=== PATIENT | female | born 1980 | race Caucasian/White ===

== ENCOUNTER 2021-01-29 15:13 | Inpatient (IN) ==
[2021-01-29 16:16] LABS: Basophils # 0.1 10*3/uL (0.0-0.2); Basophils % 1.3 % (0.0-0.8); Eosinophils # 0.2 10*3/uL (0.0-0.87); Eosinophils % 2.7 % (0.00-10.9); Hematocrit 30.9 VOL% (35.7-47.0); Hemoglobin 9.8 GM/DL (12.0-16.0); Immature Granulocytes % 0.6 %; Immature Granulocytes Absolute 0.05 #; Lymphocytes # 1.8 10*3/uL (1.4-4.0); Mean Corpuscular HGB Conc 31.7 GM/DL (32-36); Mean Corpuscular Volume 80.3 FL (87-102); Mean Platelet Volume 10.4 FL (9.6-12.0); Monocytes % 15.2 % (1.7-12.7); Neutrophils % 59.2 % (38.7-73.9); Platelet Count 422 T/CUMM (130-400); Red Blood Count 3.85 MC/CUMM (3.8-5.5); Red Cell Distribution Width 13.9 % (9.3-17.3); White Blood Count 8.8 T/CUMM (4-12)
[2021-01-29 16:30] LABS: ABG Base Excess -9.4 MMOL/L (-2.5-2.5); ABG HCO3 16.9 MMOL/L (20-26); ABG Oxygen Saturation 96.9 % (95-100); ABG PCO2 32.4 MM HG (35-48); ABG PH 7.304 (7.35-7.45); ABG PO2 93.1 MM HG (80-95); ABG TCO2 14.8 MMOL/L (23-27)
[2021-01-29 16:34] LABS: Alanine Aminotransferase 10 U/L (13-56); Albumin 2.8 G/DL (3.4-5.0); Alkaline Phosphatase 151 U/L (45-117); Aspartate Amino Transferase 11 U/L (0-37); Bilirubin,Total < 0.39 MG/DL (0.20-1.00); Blood Urea Nitrogen 71 MG/DL (7-18); Calcium 8.1 MG/DL (8.5-10.1); Carbon Dioxide 18 MMOL/L (21-32); Estimated Glom Filtration Rate 9 ML/MIN; Glucose 295 MG/DL (74-106); Osmolality,Calculated 299.2 MOS/KG (273-304); Potassium 4.4 MMOL/L (3.5-5.1); Sodium 134 MMOL/L (136-145); Total Protein 7.1 G/DL (6.4-8.2)
[2021-01-29] MEDS ORDERED: ONDANSETRON 4 MG/2 ML VIAL IV PRN (16:40)
[2021-01-29] MEDS ORDERED: GLUCAGON 1 MG VIAL IM PRN (16:40)
[2021-01-29] MEDS ORDERED: ZALEPLON 5 MG CAPSULE PO PRN (16:40)
[2021-01-29] MEDS ORDERED: DEXTROSE 50% 25 GM/50 ML VIAL IV PRN (16:40)
[2021-01-29] MEDS ORDERED: cloNIDine 0.1 MG TABLET PO PRN (16:45)
[2021-01-29] MEDS ORDERED: ALPRAZolam 0.5 MG TABLET PO PRN (19:11)
[2021-01-29] MEDS ORDERED: diphenhydrAMINE CAP 25 MG CAPSULE PO PRN (19:15)
[2021-01-29] MEDS ORDERED: NON-FORMULARY MEDICATION (Diphenhydramine Hcl [Benadryl Allergy] 25 mg Tablet) PO SCH (21:00)
[2021-01-29] MEDS: traZODone 50 MG TABLET PO SCH (22:28)
[2021-01-29] MEDS: ROSUVASTATIN 20 MG TABLET PO SCH (22:28)
[2021-01-29] MEDS: SODIUM CHLORIDE 0.9% 1,000 ML IV SCH (22:29)
[2021-01-29] MEDS: GABAPENTIN 400 MG CAPSULE PO SCH (22:29)
[2021-01-29] MEDS: INSULIN REGULAR 100 UNIT/ML SUBCUT SCH (23:51)
[2021-01-30] MEDS: SODIUM CHLORIDE 0.9% 1,000 ML IV SCH ×2 (04:10→15:07)
[2021-01-30 05:05] LABS: Basophils # 0.1 10*3/uL (0.0-0.2); Basophils % 1.6 % (0.0-0.8); Eosinophils # 0.2 10*3/uL (0.0-0.87); Hematocrit 29.5 VOL% (35.7-47.0); Hemoglobin 9.2 GM/DL (12.0-16.0); Immature Granulocytes % 0.7 %; Immature Granulocytes Absolute 0.05 #; Lymphocytes # 1.9 10*3/uL (1.4-4.0); Lymphocytes % 24.1 % (21.3-54.2); Mean Corpuscular HGB Conc 31.2 GM/DL (32-36); Mean Corpuscular Volume 81.7 FL (87-102); Mean Platelet Volume 10.4 FL (9.6-12.0); Monocytes % 15.3 % (1.7-12.7); Neutrophils % 55.3 % (38.7-73.9); Platelet Count 424 T/CUMM (130-400); Red Blood Count 3.61 MC/CUMM (3.8-5.5); White Blood Count 7.7 T/CUMM (4-12)
[2021-01-30 05:31] LABS: Alanine Aminotransferase 12 U/L (13-56); Albumin 2.4 G/DL (3.4-5.0); Alkaline Phosphatase 131 U/L (45-117); Aspartate Amino Transferase 7 U/L (0-37); Bilirubin,Total < 0.39 MG/DL (0.20-1.00); Blood Urea Nitrogen 69 MG/DL (7-18); Calcium 8.1 MG/DL (8.5-10.1); Carbon Dioxide 16 MMOL/L (21-32); Estimated Glom Filtration Rate 10 ML/MIN; Glucose 247 MG/DL (74-106); Potassium 4.3 MMOL/L (3.5-5.1); Sodium 136 MMOL/L (136-145); Total Protein 6.9 G/DL (6.4-8.2)
[2021-01-30] MEDS: ASPIRIN CHEW 81 MG TABLET PO SCH (08:42)
[2021-01-30] MEDS: INSULIN REGULAR 100 UNIT/ML SUBCUT SCH ×4 (08:42→21:41)
[2021-01-30] MEDS: POTASSIUM CHLORIDE 10 MEQ TABLET PO SCH (08:42)
[2021-01-30] MEDS: ISOSORBIDE MONONITRATE 30 MG TABLET PO SCH (08:42)
[2021-01-30] MEDS: PANTOPRAZOLE 40 MG TABLET PO SCH (08:43)
[2021-01-30] MEDS: GABAPENTIN 400 MG CAPSULE PO SCH (08:43)
[2021-01-30] MEDS: ASCORBIC ACID 500 MG TABLET PO SCH (08:43)
[2021-01-30] MEDS: minoxidiL 2.5 MG TABLET PO SCH (08:43)
[2021-01-30] MEDS: VILAZODONE 10 MG PO SCH (08:43)
[2021-01-30] MEDS ORDERED: LOSARTAN 50 MG TABLET PO SCH (09:00)
[2021-01-30 11:04] LABS: Risk Ratio 4.57; VLDL Cholesterol 77.2 MG/DL
[2021-01-30] MEDS ORDERED: MIDAZOLAM 2 MG/2 ML VIAL ONE (12:19)
[2021-01-30] MEDS ORDERED: ONDANSETRON 4 MG/2 ML VIAL ONE ×2 (12:19→13:37)
[2021-01-30] MEDS ORDERED: fentaNYL 100 MCG/2 ML VIAL ONE (12:19)
[2021-01-30] MEDS ORDERED: propofoL 200 MG/20 ML VIAL IV ONE (12:19)
[2021-01-30] MEDS ORDERED: LIDOCAINE 2% 5 ML VIAL ONE (12:19)
[2021-01-30] MEDS ORDERED: LACTATED RINGERS 1,000 ML IV SCH (13:00)
[2021-01-30] MEDS ORDERED: SUCCINYLCHOLINE 200 MG/10 ML VIAL ONE (13:10)
[2021-01-30] MEDS ORDERED: PHENYLEPHRINE 10 MG/1 ML VIAL IV ONE (13:32)
[2021-01-30] MEDS ORDERED: SEVOFLURANE 1 UNIT/15 MINUTE INH ONE (13:57)
[2021-01-30] MEDS ORDERED: HYDROmorphone 2 MG/1 ML VIAL ONE (14:10)
[2021-01-30] MEDS ORDERED: ONDANSETRON 4 MG/2 ML VIAL IV PRN (14:21)
[2021-01-30] MEDS ORDERED: HYDROmorphone 2 MG/1 ML VIAL IV PRN (14:21)
[2021-01-30] MEDS: PIPERACILLIN/TAZOBACTAM 3,375 MG in SODIUM CHLORIDE 0.9% 100 ML IV SCH ×2 (15:06→19:46)
[2021-01-30] MEDS ORDERED: GLUCAGON 1 MG VIAL IM PRN (16:43)
[2021-01-30] MEDS ORDERED: DEXTROSE 50% 25 GM/50 ML VIAL IV PRN (16:43)
[2021-01-30] MEDS ORDERED: ENOXAPARIN 30 MG/0.3 ML SYRINGE SUBCUT SCH (17:00)
[2021-01-30] MEDS ORDERED: SODIUM BICARB INJ 50 MEQ in SODIUM CHLORIDE 0.45% 1,000 ML IV SCH (19:37)
[2021-01-30] MEDS ORDERED: INSULIN GLARGINE 100 UNIT/ML SUBCUT SCH (21:00)
[2021-01-30] MEDS: traZODone 50 MG TABLET PO SCH (21:06)
[2021-01-30] MEDS: ROSUVASTATIN 20 MG TABLET PO SCH (21:06)
[2021-01-31] MEDS: PIPERACILLIN/TAZOBACTAM 3,375 MG in SODIUM CHLORIDE 0.9% 100 ML IV SCH (03:33)
[2021-01-31 04:35] LABS: Basophils # 0.1 10*3/uL (0.0-0.2); Eosinophils # 0.2 10*3/uL (0.0-0.87); Eosinophils % 2.5 % (0.00-10.9); Hematocrit 27.6 VOL% (35.7-47.0); Hemoglobin 8.6 GM/DL (12.0-16.0); Immature Granulocytes Absolute 0.08 #; Lymphocytes # 1.6 10*3/uL (1.4-4.0); Lymphocytes % 19.1 % (21.3-54.2); Mean Corpuscular HGB Conc 31.2 GM/DL (32-36); Mean Corpuscular Volume 82.1 FL (87-102); Mean Platelet Volume 10.5 FL (9.6-12.0); Monocytes % 10.9 % (1.7-12.7); Neutrophils % 65.5 % (38.7-73.9); Platelet Count 378 T/CUMM (130-400); Red Blood Count 3.36 MC/CUMM (3.8-5.5); White Blood Count 8.1 T/CUMM (4-12)
[2021-01-31 04:56] LABS: Calcium 7.7 MG/DL (8.5-10.1); Osmolality,Calculated 294.8 MOS/KG (273-304); Potassium 4.4 MMOL/L (3.5-5.1)
[2021-01-31 04:57] LABS: Parathyroid Hormone Intact 195.3 PG/ML (18.4-80.1)
[2021-01-31 05:01] LABS: Ferritin 98.2 ng/mL (8-252); Uric Acid 6.9 MG/DL (2.6-6.0)
[2021-01-31] MEDS: ASCORBIC ACID 500 MG TABLET PO SCH (08:53)
[2021-01-31] MEDS: ASPIRIN CHEW 81 MG TABLET PO SCH (08:54)
[2021-01-31] MEDS: POTASSIUM CHLORIDE 10 MEQ TABLET PO SCH (08:54)
[2021-01-31] MEDS: PANTOPRAZOLE 40 MG TABLET PO SCH (08:54)
[2021-01-31] MEDS: ISOSORBIDE MONONITRATE 30 MG TABLET PO SCH (08:54)
[2021-01-31] MEDS: minoxidiL 2.5 MG TABLET PO SCH (10:24)
[2021-01-31] MEDS: VILAZODONE 10 MG PO SCH (10:24)
[2021-01-31] MEDS: INSULIN REGULAR 100 UNIT/ML SUBCUT SCH ×2 (10:24→11:03)
[2021-01-31 11:35] VITALS: BP 147/76
[2021-01-31 11:39] LABS: Protein/Creatinine Ratio,Urine 0.9 RATIO
[2021-01-31] MEDS ORDERED: GABAPENTIN 300 MG CAPSULE PO SCH (21:00)
== END 2021-01-31 17:22 | disposition home or self-care (01) | DRG 951 ==
LOC: N.ED 15:13 → N.EDINP 16:40
PROVIDERS: ADMIT Internal Medicine; ATTEND Internal Medicine

== ENCOUNTER 2021-06-26 19:25 | Observation (INO) ==
[2021-06-26] MEDS ORDERED: SODIUM CHLORIDE 0.9% 1,000 ML IV STA (19:56)
[2021-06-26 20:59] LABS: Basophils # 0.1 10*3/uL (0.0-0.2); Basophils % 0.6 % (0.0-0.8); Eosinophils # 0.2 10*3/uL (0.0-0.87); Eosinophils % 1.5 % (0.00-10.9); Hematocrit 38.5 VOL% (35.7-47.0); Hemoglobin 12.5 GM/DL (12.0-16.0); Immature Granulocytes % 0.8 %; Lymphocytes % 15.5 % (21.3-54.2); Mean Corpuscular HGB Conc 32.5 GM/DL (32-36); Mean Corpuscular Volume 81.9 FL (87-102); Mean Platelet Volume 10.4 FL (9.6-12.0); Monocytes % 8.4 % (1.7-12.7); Neutrophils % 73.2 % (38.7-73.9); Platelet Count 349 T/CUMM (130-400); Red Cell Distribution Width 13.4 % (9.3-17.3); White Blood Count 12.6 T/CUMM (4-12)
[2021-06-26 21:25] LABS: INR 0.9; PT Patient Result 10.4 SECS (10.5-12.0)
[2021-06-26 21:28] LABS: Alanine Aminotransferase 18 U/L (13-56); Albumin 2.7 G/DL (3.4-5.0); Alkaline Phosphatase 134 U/L (45-117); Aspartate Amino Transferase 20 U/L (0-37); Bilirubin,Total < 0.39 MG/DL (0.20-1.00); Blood Urea Nitrogen 35 MG/DL (7-18); Calcium 8.4 MG/DL (8.5-10.1); Carbon Dioxide 24 MMOL/L (21-32); Glucose 118 MG/DL (74-106); Osmolality,Calculated 283.7 MOS/KG (273-304); Potassium 3.9 MMOL/L (3.5-5.1); Sodium 138 MMOL/L (136-145); Total Protein 6.7 G/DL (6.4-8.2)
[2021-06-26 21:30] LABS: Estimated Glom Filtration Rate 0 ML/MIN
[2021-06-26 22:20] LABS: Bacteria,Urine Occasional /HPF (Few); Bilirubin,Urine Negative (Negative); Blood, Urine Small mg/dL (Negative); Glucose,Urine (UA) >=500 mg/dL (Negative); Ketones,Urine Negative (Negative); Nitrite,Urine Negative (Negative); Protein,Urine >=500 MG/DL; RBC,Urine 3 /HPF (0-4); Squamous Epithelial Cell,Urine Many /HPF (0-10); Urine Appearance CLOUDY (Clear); Urine Color Yellow (Yellow); Urine Specific Gravity 1.022 (1.001-1.035); Urine Urobilinogen < 2.0 EU/DL (<2.0)
[2021-06-26 22:40] LABS: Barbiturates Screen,Urine Negative (Negative); Benzodiazepines Screen,Urine Positive (Negative); Cannabinoid Screen,Urine Negative (Negative); Opiate Screen,Urine Negative (Negative); Phencyclidine Screen,Urine Negative (Negative)
[2021-06-27] MEDS ORDERED: PROMETHAZINE 25 MG/1 ML VIAL IM PRN (00:37)
[2021-06-27] MEDS ORDERED: GLUCAGON 1 MG VIAL IM PRN ×2 (00:37)
[2021-06-27] MEDS ORDERED: hydrALAZINE 20 MG/1 ML VIAL IV PRN (00:37)
[2021-06-27] MEDS ORDERED: NICOTINE 21 MG/24 HR PATCH TRANSDERM PRN (00:37)
[2021-06-27] MEDS ORDERED: ONDANSETRON 4 MG/2 ML VIAL IV PRN (00:37)
[2021-06-27] MEDS ORDERED: ACETAMINOPHEN 325 MG TABLET PO PRN (00:37)
[2021-06-27] MEDS ORDERED: DEXTROSE 10% 250 ML BAG IV PRN (00:37)
[2021-06-27] MEDS ORDERED: DOCUSATE SODIUM 100 MG CAPSULE PO PRN (00:37)
[2021-06-27] MEDS ORDERED: MORPHINE 2 MG/1 ML SYRINGE IV PRN (00:37)
[2021-06-27] MEDS ORDERED: diphenhydrAMINE CAP 25 MG CAPSULE PO PRN (00:37)
[2021-06-27] MEDS ORDERED: guaiFENesin/DM ER 600-30 MG TABLET PO PRN (00:37)
[2021-06-27] MEDS ORDERED: DEXTROSE 50% 25 GM/50 ML VIAL IV PRN (00:37)
[2021-06-27] MEDS ORDERED: ZALEPLON 5 MG CAPSULE PO PRN (00:37)
[2021-06-27] MEDS ORDERED: NITROGLYCERIN SL 0.4 MG TABLET SL PRN (00:45)
[2021-06-27] MEDS ORDERED: SODIUM CHLORIDE 0.9% 1,000 ML IV SCH (01:00)
[2021-06-27] MEDS: ALBUTEROL/IPRATROPIUM 3 ML NEB RESP TX SCH ×4 (02:53→19:19)
[2021-06-27 04:29] LABS: Basophils # 0.1 10*3/uL (0.0-0.2); Basophils % 0.6 % (0.0-0.8); Eosinophils # 0.2 10*3/uL (0.0-0.87); Eosinophils % 1.6 % (0.00-10.9); Hematocrit 36.6 VOL% (35.7-47.0); Hemoglobin 11.7 GM/DL (12.0-16.0); Immature Granulocytes % 0.8 %; Lymphocytes # 3.3 10*3/uL (1.4-4.0); Lymphocytes % 25.5 % (21.3-54.2); Mean Corpuscular Volume 81.9 FL (87-102); Mean Platelet Volume 10.6 FL (9.6-12.0); Monocytes % 6.6 % (1.7-12.7); Neutrophils % 64.9 % (38.7-73.9); Platelet Count 346 T/CUMM (130-400); Red Blood Count 4.47 MC/CUMM (3.8-5.5); Red Cell Distribution Width 13.7 % (9.3-17.3); White Blood Count 12.8 T/CUMM (4-12)
[2021-06-27 04:52] LABS: Calcium 8.1 MG/DL (8.5-10.1); Osmolality,Calculated 285.5 MOS/KG (273-304); Potassium 4.5 MMOL/L (3.5-5.1)
[2021-06-27] MEDS: INSULIN LISPRO 100 UNIT/ML SUBCUT SCH ×4 (08:37→21:22)
[2021-06-27] MEDS ORDERED: ISOSORBIDE MONONITRATE 30 MG TABLET PO SCH (09:00)
[2021-06-27] MEDS: ASPIRIN CHEW 81 MG TABLET PO SCH (09:03)
[2021-06-27] MEDS: cloNIDine 0.1 MG TABLET PO SCH ×2 (09:03→21:23)
[2021-06-27] MEDS: HEPARIN 5,000 UNIT/1 ML VIAL SUBCUT SCH ×2 (09:03→21:23)
[2021-06-27] MEDS: PANTOPRAZOLE 40 MG TABLET PO SCH (09:04)
[2021-06-27] MEDS: METOPROLOL TARTRATE 25 MG TABLET PO SCH ×2 (09:04→21:23)
[2021-06-27] MEDS ORDERED: INSULIN GLARGINE 100 UNIT/ML SUBCUT SCH (21:00)
[2021-06-27] MEDS ORDERED: ROSUVASTATIN 20 MG TABLET PO SCH (21:00)
[2021-06-28] MEDS: ALBUTEROL/IPRATROPIUM 3 ML NEB RESP TX SCH ×2 (01:03→07:02)
[2021-06-28 05:39] LABS: Basophils # 0.1 10*3/uL (0.0-0.2); Basophils % 0.7 % (0.0-0.8); Eosinophils # 0.2 10*3/uL (0.0-0.87); Eosinophils % 2.4 % (0.00-10.9); Hematocrit 34.6 VOL% (35.7-47.0); Hemoglobin 11.1 GM/DL (12.0-16.0); Immature Granulocytes % 0.7 %; Immature Granulocytes Absolute 0.07 #; Lymphocytes # 3.1 10*3/uL (1.4-4.0); Lymphocytes % 30.4 % (21.3-54.2); Mean Corpuscular HGB Conc 32.1 GM/DL (32-36); Mean Corpuscular Volume 82.8 FL (87-102); Monocytes % 7.7 % (1.7-12.7); Neutrophils % 58.1 % (38.7-73.9); Platelet Count 256 T/CUMM (130-400); Red Blood Count 4.18 MC/CUMM (3.8-5.5); White Blood Count 10.1 T/CUMM (4-12)
[2021-06-28 05:47] LABS: Calcium 8.4 MG/DL (8.5-10.1); Osmolality,Calculated 281.1 MOS/KG (273-304); Potassium 3.8 MMOL/L (3.5-5.1)
[2021-06-28] MEDS: cloNIDine 0.1 MG TABLET PO SCH (08:54)
[2021-06-28] MEDS: PANTOPRAZOLE 40 MG TABLET PO SCH (08:54)
[2021-06-28] MEDS: METOPROLOL TARTRATE 25 MG TABLET PO SCH (08:54)
[2021-06-28] MEDS: HEPARIN 5,000 UNIT/1 ML VIAL SUBCUT SCH (08:55)
[2021-06-28] MEDS: ASPIRIN CHEW 81 MG TABLET PO SCH (08:55)
[2021-06-28] MEDS: INSULIN LISPRO 100 UNIT/ML SUBCUT SCH ×2 (08:55→12:55)
[2021-06-28] MEDS ORDERED: FLUDROCORTISONE 0.1 MG TABLET PO SCH (09:00)
[2021-06-28 13:19] VITALS: BP 164/89
== END 2021-06-28 13:05 | disposition home or self-care (01) ==
LOC: EDUNIT# → EDBD → N.EDINP 19:25 → N.ED 19:25 → SUATTDRO 06-27 00:37 → N.TELEN 06-27 12:50
PROVIDERS: ADMIT Internal Medicine; ATTEND Internal Medicine